=== PATIENT | female | born 1945 | race Caucasian/White ===

== ENCOUNTER → 2021-07-20 | Day surgery (SDC) | payer MEDICARE, OTHER ==
[~2021-07-20] VITALS: Ht 170.2 cm; Wt 97.2 kg
[~2021-07-20] MED LIST: ALBU2.5V8 IH; AMMO225L5 TP; APIX5TAB PO; DILT240C33 PO; DOCU100C28 PO; FLUT16SP NS; GLIM4TAB8 PO; GLYC1SUP RC; HYDR-2761 PO; IBUP-1007 PO; IV RINGERS,LACTATED 1000ML 1,000 ML IV SCH; LACT1CAP6 PO; LIDOCAINE 2% PF 5 ML VIAL. ONE; LORA10TA3 PO; LOSA25TA PO; METF-658 PO; METO25TA2 PO; MUPI22OI2 TP; OMEG-152 PO; POLY2500 PO; PROPOFOL 10 MG/ML (20ML) VIAL. IV ONE; SITA100T PO; TURM500C4 PO; URSO250T3 PO
[2021-07-20 06:58] VITALS: BP 177/101
[2021-07-20 08:02] VITALS: BP 132/74
--- NOTE | 2021-07-20 13:02 | CONS ---
DATE OF CONSULTATION: 07/20/2021 UPDATED HISTORY AND PHYSICAL REFERRING PHYSICIAN: Felipa Samuel. REASON FOR CONSULTATION: Colorectal screening and an infrequent rectal bleeding. HISTORY OF PRESENT ILLNESS: A 76-year-old female whose past medical history is significant for hypertension, diabetes, osteoarthrosis seen for interval exam. She has had adenomatous polyps in the past. Bowel habits are regular without diarrhea or constipation. There has been infrequent bleeding, has been bright red in nature. No additional complaints are noted at the present time. PAST MEDICAL HISTORY: Diabetes, hypertension, sleep apnea, pancreatitis, colonic polyps. ALLERGIES: PENICILLIN. MEDICATIONS: Albuterol, , Eliquis, diltiazem, fluticasone, glimepiride, hydrocodone, lactobacillus, losartan, metformin, metoprolol, omega-3, polyethylene glycol, Januvia, turmeric and ursodiol. SOCIAL HISTORY: She is a smoker and social drinker. FAMILY HISTORY: Significant for colonic polyps in a brother. Diabetes with her mother, hypertension with father, ovarian cancer in her mother. PAST SURGICAL HISTORY: Cholecystectomy. REVIEW OF SYSTEMS: Per records. PHYSICAL EXAMINATION: GENERAL: Well-nourished, well-developed female, alert, cooperative, in no acute distress. VITAL SIGNS: Temperature 97.9, pulse 112, respiratory rate 22. LUNGS: Clear. CARDIOVASCULAR: Reveals an S1, S2, without S3, S4 or appreciable murmur. ABDOMEN: Reveals a soft abdomen, normal bowel sounds, without appreciable hepatosplenomegaly. ASSESSMENT: History of colonic polyps. Surveillance exam is recommended at this time. Risks and benefits of procedure including risk of hemorrhage and perforation with operation were discussed. The patient is willing to proceed. TITI DR: Elis TID: [id number] CC: Felipa Samuel
== END | disposition home or self-care (01) ==
LOC: ENDOS 06:28
PROVIDERS: ATTEND Internal Medicine Gastroenterology
DX: K62.5 Hemorrhage of anus and rectum (principal); K64.0 First degree hemorrhoids; K57.30 Diverticulosis of large intestine without perforation or abscess without bleeding; K63.89 Other specified diseases of intestine; E11.9 Type 2 diabetes mellitus without complications; I10 Essential (primary) hypertension; G47.30 Sleep apnea, unspecified; I48.91 Unspecified atrial fibrillation; E78.00 Pure hypercholesterolemia, unspecified; Z86.010 Personal history of colon polyps; Z79.899 Other long term (current) drug therapy; Z98.890 Other specified postprocedural states; Z90.49 Acquired absence of other specified parts of digestive tract; Z90.710 Acquired absence of both cervix and uterus; Z98.51 Tubal ligation status; Z79.84 Long term (current) use of oral hypoglycemic drugs; Z88.0 Allergy status to penicillin
CPT/HCPCS: 45378; J2704